=== PATIENT | female | born 1990 | race African-American/Black ===

== ENCOUNTER 2017-05-04 19:59 | Inpatient (IN) | payer OTHER ==
[~2017-05-04] VITALS: Ht 165.1 cm; Wt 86.5 kg
[2017-05-04] VITALS (14 sets, daily range): BP systolic 105–130; BP diastolic 55–81
[2017-05-04] MEDS ORDERED: PRENTAB9 PO (20:22)
[2017-05-04] MEDS ORDERED: LACTATED RINGER'S 1000 ML IV STA (21:37)
[2017-05-04] MEDS ORDERED: PENICILLIN G POTASSIUM IV 5 MU in D5W MINI-BAG PLUS 100 ML IV STA (21:37)
[2017-05-04] MEDS ORDERED: LR 1,000 ML IV SCH (21:37)
[2017-05-04 22:01] LABS: MEAN CORPUSCULAR HEMOGLOBIN 27.2 pg (27.0-33.0); MEAN CORPUSCULAR HGB CONC 33.6 g/dl (32.0-36.5); MEAN CORPUSCULAR VOLUME 80.8 fl (80.0-96.0); RED CELL DISTRIBUTION WIDTH 15.8 % (11.5-14.5)
--- NOTE | 2017-05-04 22:28 | HPEPDOC ---
Obstetrical History & Physical General Date of Admission May 04, 2017 at 21:36 History of Present Illness 26 y/o at 39+3 for reg ctx's most of the day. Pos FM. No VB/LOF. 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 History: No pertinent history Past Medical History Medical History denies Surgical History: [place] teeth Family History Significant Family History: No pertinent family hx Social History Marital Status: Family situation: Spouse/partner home Psychosocial History: No pertinent psych hx * Smoker: non-smoker Alcohol: Denies Drugs: denies Abuse Violence Screening Have you been hit/kicked/slapp: No Have you been sexually assault: No Imunizations Tdap status: current Influenza Status: current Allergies Coded Allergies: No Known Allergies (Unverified , 05/04/17) Medications Scheduled Multivitamins/ ( 27-0.8 mg) 1 Tab Tab, 1 TAB PO DAILY Physical Examination Physical Examination GENERAL: Alert and oriented times three. BREAST: . ABDOMEN: Gravid and non-tender to touch. FETUS: Is vertex (VTX) by sterile vaginal examination (SVE), Cx 5/80/-2 at 2130 HEART RATE: Regular rate and rhythm. LUNGS: Clear to auscultation (CTA). EXTREMITIES: No edema. No clonus. Vital Signs/I&O Vital Signs Date Time Temp Pulse Resp B/P (MAP) Pulse Ox O2 Delivery O2 Flow Rate FiO2 05/04/17 20:19 98.5 101 18 116/60 (78) Laboratory Data 24H LABS Laboratory Tests 2 05/04/17 21:38: Serology Scanned Report Hepatitis B Testing 05/04/17 21:52: Nucleated Red Blood Cells % (auto) 0.0 CBC/BMP Laboratory Tests 05/04/17 21:52 Red Blood Count 4.27, Mean Corpuscular Volume 80.8, Mean Corpuscular Hemoglobin 27.2, Mean Corpuscular Hemoglobin Concent 33.6, Red Cell Distribution Width 15.8 H Urine Culture: Other (gbs pos) Pertinent Laboratoy Data Blood Type: O+ RBC Antibody Screen: Negative HIV: Negative Hepatitis B: Negative Hepatitis C: Unknown Rapid Plasma Reagin: Nonreactive Rubella: Immune Varicella: Immune Chlamydia/Gonorrhea: Negative Group B Streptococcus: Positive Quad Screen Test: Declined Cystic Fibrosis: Negative Anatomy Ultrasound Placenta Location: Anterior Normal Anatomy: Yes Placenta Previa: No Assessment Variability: Moderate Accelerations: Positive Decelerations: None Tocometer Contractions: Yes Frequency: regular Duration: greater than 60 seconds Strength: palpated as moderate Assessment/Plan Plan Active labor. Admit and orient. 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 Diet: clr Group B Streptococcus (GBS) pos, will recheck at ~0200 after second dose PCN is in Labs and intravenous (IV) per unit protocol. Counseled on Pitocin prn Lactated Ringers (LR): Bolus 1000 cc prior to desired epidural Anticipate normal spontaneous delivery () C-S as appropriate. Sessions MD LIM,EVA Clark MD May 04, 2017 22:28
[2017-05-04] MEDS ORDERED: fentaNYL 100 MCG/2 ML INJECTION (J3010) As Ordered ONE (22:47)
[2017-05-04] MEDS ORDERED: FENTANYL 2MCG/ML ROPIVACAINE 0.2% IN 0.9% NACL 200ML IVBAG As Ordered ONE (22:49)
[2017-05-05] VITALS (37 sets, daily range): BP systolic 85–117; BP diastolic 50–75
[2017-05-05] MEDS ORDERED: ePHEDrine SULFATE 25 MG/5 ML(5MG/ML) SYRINGE As Ordered ONE ×2 (00:13→07:14)
[2017-05-05] MEDS: ePHEDrine SULFATE 25 MG/5 ML(5MG/ML) SYRINGE IV PRN ×3 (00:16→00:26)
[2017-05-05] MEDS ORDERED: EPIDURAL/PCA KEYS XX PRN (01:45)
[2017-05-05] MEDS ORDERED: FENTANYL/ROPIVACAINE/NACL BAG 200 ML EPIDURAL SCH (01:45)
[2017-05-05] MEDS ORDERED: REFRIGERATOR IV KEYS XX PRN (01:45)
[2017-05-05] MEDS ORDERED: NALOXONE INJ 0.4 MG/1 ML VIAL (J2310) IV PRN ×3 (01:45→06:24)
[2017-05-05] MEDS ORDERED: ONDANSETRON 4MG/2ML VIAL (J2405) IV PRN ×3 (01:45→08:15)
[2017-05-05] MEDS ORDERED: diphenhydrAMINE INJ 50MG/ML VIAL (J1200) IV PRN (01:45)
[2017-05-05] MEDS ORDERED: LACTATED RINGER'S 1000 ML IV PRN (01:45)
[2017-05-05] MEDS ORDERED: EPIDURAL COMMENT XX SCH (01:45)
[2017-05-05] MEDS ORDERED: PENICILLIN G POTASSIUM IV 2.5 MU in D5W 100 ML IV SCH (02:00)
[2017-05-05] MEDS ORDERED: OXYTOCIN 30 UNITS IN 0.9% NaCl 500ML IV BAG (J2590) As Ordered ONE ×2 (02:47→07:40)
--- NOTE | 2017-05-05 03:59 | IPNPDOC ---
Text Note Date of Service The patient was seen on 05/05/17. NOTE Now s/p 2nd dose PCN NST with lates after epidural which were BP related and ephedrine given X3, mod martin throughout. Now with intermittent variables and episodic lates noted. Cx 8/100/0, AROM with clr fluid, light mec noted Following tracing closely. Sessions VS,Eric, I+O VS, Eric, I+O Laboratory Tests 05/04/17 21:52 Red Blood Count 4.27, Mean Corpuscular Volume 80.8, Mean Corpuscular Hemoglobin 27.2, Mean Corpuscular Hemoglobin Concent 33.6, Red Cell Distribution Width 15.8 H Vital Signs Date Time Temp Pulse Resp B/P (MAP) Pulse Ox O2 Delivery O2 Flow Rate FiO2 05/04/17 20:19 98.5 101 18 116/60 (78) SESSIONS,EVA Clark MD May 05, 2017 03:59
[2017-05-05] MEDS ORDERED: ePHEDrine INJ 50 MG/ML VIAL IV STA (04:38)
--- NOTE | 2017-05-05 05:32 | IPNPDOC ---
Text Note Date of Service The patient was seen on 05/05/17. NOTE NST Cat 2 with episodic late decels, mod martin, now tachycardia as well Cx C/C/+1, will not labor down due to tracing issues, watching closely Sessions VS,Eric, I+O VSEric I+O Laboratory Tests 05/04/17 21:52 Red Blood Count 4.27, Mean Corpuscular Volume 80.8, Mean Corpuscular Hemoglobin 27.2, Mean Corpuscular Hemoglobin Concent 33.6, Red Cell Distribution Width 15.8 H Vital Signs Date Time Temp Pulse Resp B/P (MAP) Pulse Ox O2 Delivery O2 Flow Rate FiO2 05/05/17 03:47 98.3 129 16 99/61 (74) SESSIONS,EVA Clark MD May 05, 2017 05:32
[2017-05-05] MEDS ORDERED: MORPHINE PRES-FREE INJ 10 MG/10 ML VIAL (J2274) As Ordered ONE (06:07)
[2017-05-05] MEDS ORDERED: OXYTOCIN INJ 10 UNITS/ML VIAL (J2590) As Ordered ONE (06:09)
[2017-05-05] MEDS ORDERED: ceFAZolin 2 GM/D5W 50 ML IV BAG (J0690) As Ordered ONE (06:17)
[2017-05-05] MEDS ORDERED: NALBUPHINE HCL 10 MG/ML AMP (J2300) IV PRN ×2 (06:24→08:15)
[2017-05-05] MEDS ORDERED: METOCLOPRAMIDE INJ 10MG/2ML VIAL (J2765) IV PRN ×2 (06:24→08:15)
[2017-05-05] MEDS ORDERED: MIDAZOLAM INJ 2 MG/2 ML VIAL (J2250) As Ordered ONE ×2 (06:57→07:14)
[2017-05-05] MEDS ORDERED: PHENYLephrine HCL 500 MCG/5 ML (100MCG/ML) SYRINGE (J2370) As Ordered ONE ×2 (07:14→07:42)
[2017-05-05 07:33] LABS: CORD GAS ABE A -4.6; CORD GAS HCO3 A 24.2 MEQ/L; CORD GAS PCO2 A 60.3 mmHg; CORD GAS PH A 7.221 UNITS; CORD GAS PO2 A 20.6 mmHg; CORD GAS SBC A 19.4 MEQ/L
[2017-05-05 07:35] LABS: CORD GAS ABE V -6.4; CORD GAS O2 SAT V 47.1 %; CORD GAS PCO2 V 48.7 mmHg; CORD GAS PH V 7.253 UNITS; CORD GAS PO2 V 22.6 mmHg; CORD GAS SBC V 18.2 MEQ/L; CORD GAS TCO2 V 22.5 MEQ/L
[2017-05-05] MEDS ORDERED: METHYLERGONOVINE MALEATE 0.2 MG/ML VIAL (J2210) As Ordered ONE ×2 (08:02→08:03)
[2017-05-05] MEDS: LR 1,000 ML IV SCH ×2 (08:11→17:00)
[2017-05-05] MEDS ORDERED: OXYTOCIN DRIP 30 UNITS in APPROPRIATE DILUENT 1 EA IV SCH (08:11)
[2017-05-05] MEDS ORDERED: METHYLERGONOVINE MALEATE 0.2 MG TAB PO PRN (08:15)
[2017-05-05] MEDS ORDERED: MEPERIDINE INJ 25 MG/ML VIAL (J2175) IV PRN (08:15)
[2017-05-05] MEDS ORDERED: fentaNYL 100 MCG/2 ML INJECTION (J3010) IV PRN (08:15)
[2017-05-05] MEDS ORDERED: PERCOCET 5MG/325MG TAB PO PRN ×2 (08:15)
[2017-05-05] MEDS ORDERED: MEASLES,MUMPS,RUBELLA VACCINE INJ (MMR-II) (90707) SC SCH (08:15)
[2017-05-05] MEDS ORDERED: RHOGAM 300 MCG (1500 IU) INJ (J2790) IM SCH (08:15)
[2017-05-05] MEDS: PRENATAL VITAMINS CHEWABLE TABLET PO SCH (09:00)
[2017-05-05] MEDS: DOCUSATE SODIUM 100 MG CAP PO SCH ×2 (09:00→21:00)
[2017-05-05] MEDS: KETOROLAC 30 MG/ML VIAL (J1885) IV SCH ×3 (10:00→21:42)
--- NOTE | 2017-05-05 10:41 | RO ---
DATE OF PROCEDURE: 05/05/2017 PREPROCEDURE DIAGNOSES: Non-reassuring heart tracing, failed vacuum with no descent, meconium. POSTPROCEDURE DIAGNOSES: Non-reassuring heart tracing, failed vacuum with no descent, meconium, macrosomia. PROCEDURE: Stat primary delivery. SURGEON: Dr. Orlando Garcia. FILTER CLEANER: production maintenance technician ANESTHESIA: Spinal and assisted ventilation due to a high spinal. ESTIMATED BLOOD LOSS: 1000 mL. DRAINS: 100 mL of clear urine in the Garza catheter. FLUIDS REPLACED: 1800 of lactated Ringers. SPECIMEN: Placenta. PREOPERATIVE ANTIBIOTICS: Ancef 2 grams IV, all in prior to starting the case. FINDINGS: Pfannenstiel skin incision low transverse uterine incision, meconium, female, Apgars 8 and 8, 10 pounds 8 ounces, 4760 grams, lower uterine extension into the midline due to the macrosomia. INDICATION: The was a G1, P0 at term admitted for active labor who had intermittent late decelerations throughout most of her labor, however, moderate variability persisted and we were able to correct her decelerations with standard intrauterine resuscitation maneuvers. However, when she reached complete dilation and started to push, she had a late deceleration after every contraction that we were not able to fix. I consented her for operative vaginal delivery and delivery and when I placed the vacuum at the appropriate position, and the patient pushed for three sets of contractions, there was no descent whatsoever. The late decelerations continued therefore, she underwent an indicated urgent section. Dr. Lazaro the anesthesiologist thought it prudent to remove the epidural and place a spinal due to spotty coverage of the epidural and this was done without complication. However, shortly after the spinal was performed, the patient began to have shortness of breath and developed an obvious high spinal. Therefore, the case was transitioned from an urgent to an emergent stat . Dr. Lazaro was able to manage her airway and oxygen status with assisted ventilation only, never had to intubate her. Please see the anesthesia notations in the chart if there are questions. DESCRIPTION OF PROCEDURE: The patient was taken to the operating room in stable condition where spinal anesthetic was easily placed. While the patient's Garza was being placed, she developed a high spinal, therefore, the case transitioned from an urgent to an emergent . I scrubbed my hands and arms quickly while nurses did a Betadine prep of the abdomen and upper legs. She was then draped in normal sterile fashion and a Pfannenstiel skin incision was carried down to the layer of the fascia which was nicked in the midline and the fascia was extended bilaterally the extent of the skin incision. I the rectus muscles in the midline, breached the peritoneum bluntly with my digit and a stretching maneuver created an adequate peritoneal window. The bladder blade was placed. A bladder flap was not created due to the urgent nature of the situation and I was able to quickly perform a low transverse uterine incision and stretch it then to adequacy. Meconium noted. The infant's head was tightly wedged into the pelvis in the left occiput anterior (SOUTH) position and I immediately noted that the baby was much bigger than anyone had anticipated. My estimated weight prior to delivery was approximately 8 to 8-1/2 pounds. The heart was delivered through the uterine incision and with fundal pressure, we were able to deliver the rest of the without difficulty. The was vigorous, had good tone and a spontaneous cry and the cord was clamped times two and cut and the obviously macrosomic was handed off to the awaiting resuscitation team including the glove factory sewer, Dr. Plascencia. Dr. Plascencia had been present for some time due to being called also for the vacuum delivery. Cord gases were obtained at this point. It was noted to be arterial pH of 7.22 with a base excess of -4.6 and a venous gas with a pH of 7.25 with a base excess of -6.4. Cord blood was obtained. The placenta was delivered through the incision with traction and the uterus was massaged with Pitocin running wide open. The uterus was wrapped with a warm sponge and the uterine cavity was cleared of all clots and debris with two dry sponges. We noted that there was a deep midline extension of the uterine incision downward toward the cervix and bladder, which I closed first after grasping all edges with ring forceps. Closure suture was an 0 Vicryl. This was satisfactorily brought up to the level of the original uterine incision and I then closed the uterine incision from left to right with running locked suture of 0 Vicryl. I then imbricated the incision with 0 Monocryl without difficulty. Hemostasis was achieved with a few more [id number] suture. Irrigation was performed behind the uterus. Sterile milk was backfilled into the bladder and no defect was noted. The uterus was replaced into its anatomical position. The colic gutters were also irrigated and all clots debrided and removed. Hemostasis was noted at the uterine incision site for several minutes while I closed the peritoneal edges with a running #2-0 Vicryl. The rectus bellies were hemostatic. The fascial was closed with a running 0 Vicryl from left to right and the subcutaneous tissue was made to be hemostatic and copiously irrigated. I then closed this area with #3- 0 Vicryl and closed the skin with a running #4-0 Monocryl subcuticular stitch. Steri-Strips were placed. A pressure dressing was placed. The patient's legs were frogged and I did a bimanual sweep of the vaginal and cervix and massaged the uterus with a small amount of clot and debris noted. It was firm and at U- 1. Of note, at one point, while I was closing the midline extension, there was a significant amount bleeding and I asked for Methergine, which was given times one intramuscular (IM). All counts prior to, during and after the case were correct including sponge, needle and instruments. MTDD
[2017-05-06] MEDS: LR 1,000 ML IV SCH ×2 (00:11→08:11)
[2017-05-06 02:02] VITALS: BP 105/58
[2017-05-06] MEDS: KETOROLAC 30 MG/ML VIAL (J1885) IV SCH (04:10)
[2017-05-06 05:55] VITALS: BP 103/81
[2017-05-06 07:20] LABS: MEAN CORPUSCULAR HEMOGLOBIN 27.3 pg (27.0-33.0); MEAN CORPUSCULAR HGB CONC 32.8 g/dl (32.0-36.5); MEAN CORPUSCULAR VOLUME 83.5 fl (80.0-96.0); RED CELL DISTRIBUTION WIDTH 15.9 % (11.5-14.5); WHITE BLOOD COUNT 14.4 10^3/uL (4.0-10.0)
--- NOTE | 2017-05-06 08:08 | IPNPDOC ---
Text Note Date of Service The patient was seen on 05/06/17. NOTE POD1 prog note States feeling well, no complaints. No heavy VB. Pain controlled. Bottle feeding. Garza now out and has voided X1. VSSAF CTAB RRR Ut at U-2, firm Ext no [employer] with bandage intact no strikethru, removed. CDI. UO adeq since This AM HCT 23.2, PLT 230 a/p: Doing well. Routine Postop care. Likely d/c tomorrow. Sessions Eric PAYAN, I+O Eric MCLEAN I+O Laboratory Tests 05/06/17 07:10 Red Blood Count 2.78 L, Mean Corpuscular Volume 83.5, Mean Corpuscular Hemoglobin 27.3, Mean Corpuscular Hemoglobin Concent 32.8, Red Cell Distribution Width 15.9 H Vital Signs Date Time Temp Pulse Resp B/P (MAP) Pulse Ox O2 Delivery O2 Flow Rate FiO2 05/06/17 05:55 98.7 98 18 103/81 (88) 98 Room Air SESSIONS,EVA Clark MD May 06, 2017 08:08
[2017-05-06] MEDS: DOCUSATE SODIUM 100 MG CAP PO SCH (08:12)
[2017-05-06] MEDS: PRENATAL VITAMINS CHEWABLE TABLET PO SCH (08:12)
[2017-05-06 10:13] VITALS: BP 115/62
[2017-05-06] MEDS ORDERED: IBUPROFEN 800 MG TAB PO SCH (12:00)
[2017-05-06 14:12] VITALS: BP 107/56
[2017-05-06] MEDS: IBUPROFEN 100 MG/5 ML SUSP UDC DYE FREE PO PRN (14:25)
[2017-05-06 18:06] VITALS: BP 109/55
[2017-05-06] MEDS: DOCUSATE SOD LIQ 100MG/10ML UDC PO SCH (21:00)
[2017-05-06] MEDS: HYDROcodone/APAP LIQUID 7.5-325MG 15ML UDC (LORTAB ELIXIR) PO PRN (21:32)
[2017-05-06 22:00] VITALS: BP 111/60
[2017-05-07 02:00] VITALS: BP 109/61
[2017-05-07] MEDS: HYDROcodone/APAP LIQUID 7.5-325MG 15ML UDC (LORTAB ELIXIR) PO PRN (04:30)
[2017-05-07 06:00] VITALS: BP 110/56
[2017-05-07 09:50] VITALS: BP 109/61
[2017-05-07] MEDS: DOCUSATE SOD LIQ 100MG/10ML UDC PO SCH (10:46)
[2017-05-07] MEDS: PRENATAL VITAMINS CHEWABLE TABLET PO SCH (10:47)
[2017-05-07] MEDS: IBUPROFEN 100 MG/5 ML SUSP UDC DYE FREE PO PRN (10:48)
--- NOTE | 2017-05-07 13:12 | DS.PDOC ---
Discharge Summary General Date of Admission May 04, 2017 at 21:36 Date of Discharge [id number] Discharge Summary PROCEDURES PERFORMED DURING STAY: Primary Delivery ADMITTING DIAGNOSIS: 1. Active Labor DISCHARGE DIAGNOSES: 1. Healthy infant 2. Macrosomia 3. HOSPITAL COURSE: Admitted for labor. Progressed to complete dilation . Developed a nonreassuring heart tracing while pushing and after placement of a vacuum had no descent. An unexpectedly macrosomic baby was born via . Uncomplicated, see operative note. DISCHARGE MEDICATIONS: Motrin, Percocet, Colace, Orthoevra in 1 month Physical exam: see note from today. LABORATORY DATA: Please see below. ACTIVITY: as tolerated. Nothing in vagina for 6 weeks. No bathing for 4 weeks. No driving for 2 weeks. DIET: regular DISPOSITION:stable TIME SPENT ON DISCHARGE: Greater than 15 minutes. Sessions Vital Signs/I&Os Vital Signs Date Time Temp Pulse Resp B/P (MAP) Pulse Ox O2 Delivery O2 Flow Rate FiO2 05/07/17 09:50 97.7 97 18 109/61 (77) 05/07/17 06:00 100 Room Air 05/06/17 18:06 99.0 Discharge Medications Scheduled Multivitamins/ ( 27-0.8 mg) 1 Tab Tab, 1 TAB PO DAILY, (Reported ) Allergies Coded Allergies: No Known Allergies (Unverified , 05/04/17) SESSIONSEVA MD May 07, 2017 13:12
--- NOTE | 2017-05-07 13:14 | IPNPDOC ---
Text Note Date of Service The patient was seen on 05/07/17. NOTE POD2 prog note States feeling well, no complaints. No heavy VB. Pain controlled. Bottle feeding. Voiding. Ambulatory. No N/V. VSSAF CTAB RRR Ut at U-2, firm Ext no CCE Inc CDI a/p: Doing well. Routine Postop care. D/C now. Sessions VS,Eric, I+O VSEric, I+O Vital Signs Date Time Temp Pulse Resp B/P (MAP) Pulse Ox O2 Delivery O2 Flow Rate FiO2 05/07/17 09:50 97.7 97 18 109/61 (77) 05/07/17 06:00 100 Room Air 05/06/17 18:06 99.0 SESSIONS,EVA Clark MD May 07, 2017 13:14
[2017-05-07] MEDS ORDERED: DOCU60SY2 PO (13:31)
[2017-05-07] MEDS ORDERED: IBUP100S2 PO (13:32)
[2017-05-07] MEDS ORDERED: HYDR1SOL PO (13:39)
== END 2017-05-07 14:40 | disposition home or self-care (01) | DRG 766 ==
LOC: M LDO 19:59 → M LDI 21:36 → M OBS 05-05 09:34
PROVIDERS: ADMIT Obstetrics & Gynecology; ATTEND Obstetrics & Gynecology
PROC: 10907ZC Drainage of Amniotic Fluid, Therapeutic from Products of Conception, Via Natural or Artificial Opening (ICD-10-PCS; 2017-05-05)
PROC: 10D00Z1 Extraction of Products of Conception, Low, Open Approach (ICD-10-PCS; principal; 2017-05-05 06:17)
DX: O36.63X0 Maternal care for excessive fetal growth, third trimester, not applicable or unspecified (principal); Z37.0 Single live birth; Z3A.39 39 weeks gestation of pregnancy; Z79.899 Other long term (current) drug therapy; O99.824 Streptococcus B carrier state complicating childbirth; O32.4XX0 Maternal care for high head at term, not applicable or unspecified; O66.5 Attempted application of vacuum extractor and forceps; O76 Abnormality in fetal heart rate and rhythm complicating labor and delivery; O77.0 Labor and delivery complicated by meconium in amniotic fluid; O00-O9A Pregnancy, childbirth and the puerperium; R06.02 Shortness of breath

== ENCOUNTER 2017-05-14 01:14 | Emergency (ER) | payer OTHER ==
[~2017-05-14 01:14] MED LIST: DOCU60SY2 PO; HYDR1SOL PO; IBUP100S2 PO; PRENTAB9 PO
[2017-05-14 01:28] VITALS: BP 123/72
[2017-05-14] MEDS ORDERED: AMOX500C PO (06:50)
== END 2017-05-14 07:01 | disposition home or self-care (01) ==
LOC: M ED 01:14
DX: J02.0 Streptococcal pharyngitis (principal)

== ENCOUNTER 2017-12-02 08:16 | Emergency (ER) | payer OTHER ==
[2017-12-02] MEDS: ONDANSETRON 4MG/2ML VIAL (J2405) IV (08:58)
[2017-12-02] MEDS: KETOROLAC 30 MG/ML VIAL (J1885) IV (08:59)
[2017-12-02 09:14] LABS: BASO % 0.5 % (0.0-1.0); EOS # 0.2 10^3/uL (0.0-0.50); EOS % 1.9 % (0.0-3.0); HEMATOCRIT 41.1 % (36.0-47.0); HEMOGLOBIN 13.1 g/dl (12.0-15.5); IMMATURE GRANULOCYTE % 0.5 % (0-3.0); LYMPH # 1.4 10^3/uL (1.5-6.5); LYMPH % 17.6 % (24.0-44.0); MEAN CORPUSCULAR HEMOGLOBIN 25.9 pg (27.0-33.0); MEAN CORPUSCULAR HGB CONC 31.9 g/dl (32.0-36.5); MEAN CORPUSCULAR VOLUME 81.4 fl (80.0-96.0); MONO # 0.4 10^3/uL (0.0-0.8); MONO % 4.5 % (0.0-5.0); PLATELET COUNT, AUTOMATED 315 10^3/uL (150-450); RED BLOOD COUNT 5.05 10^6/uL (4.00-5.40); RED CELL DISTRIBUTION WIDTH 15.3 % (11.5-14.5)
[2017-12-02 09:36] LABS: KETONE, URINE AUTO RFX NEGATIVE (NEGATIVE); LEUKOCYTE ESTERASE UR AUTO RFX NEGATIVE (NEGATIVE); MUCUS, URINE RFX SMALL (NEGATIVE); NITRITE, URINE AUTO RFX NEGATIVE (NEGATIVE); RBC, URINE AUTO RFX 2 /HPF (0-3); SQUAM EPITHELIAL CELL UR AURFX 0 /HPF (0-6); WBC, URINE AUTO RFX 1 /HPF (0-3)
[2017-12-02 09:46] LABS: ANION GAP 6 MEQ/L (8-16); BLOOD UREA NITROGEN 12 MG/DL (7-18); C REACTIVE PROTEIN QUANTITATIV < 0.30 MG/DL (0.00-0.30); CALCIUM LEVEL 9.4 MG/DL (8.5-10.1); CARBON DIOXIDE LEVEL 26 MEQ/L (21-32); CHLORIDE LEVEL 106 MEQ/L (98-107); CREATININE FOR GFR 0.84 MG/DL (0.55-1.30); GLOMERULAR FILTRATION RATE > 60.0 (>60); GLUCOSE, FASTING 90 MG/DL (70-100); POTASSIUM SERUM 4.4 MEQ/L (3.5-5.1); SODIUM LEVEL 138 MEQ/L (136-145)
== END 2017-12-02 10:10 | disposition home or self-care (01) ==
LOC: M ED 08:16
DX: R10.9 Unspecified abdominal pain (principal); R11.2 Nausea with vomiting, unspecified; Z98.890 Other specified postprocedural states
CPT/HCPCS: J2405

== ENCOUNTER 2017-12-14 00:34 | Emergency (ER) | payer OTHER ==
[2017-12-14 01:20] LABS: BASO % 0.5 % (0.0-1.0); EOS # 0.3 10^3/uL (0.0-0.50); EOS % 3.9 % (0.0-3.0); HEMOGLOBIN 12.2 g/dl (12.0-15.5); IMMATURE GRANULOCYTE % 0.3 % (0-3.0); LYMPH # 2.3 10^3/uL (1.5-6.5); LYMPH % 36.1 % (24.0-44.0); MEAN CORPUSCULAR HEMOGLOBIN 26.2 pg (27.0-33.0); MEAN CORPUSCULAR HGB CONC 32.1 g/dl (32.0-36.5); MEAN CORPUSCULAR VOLUME 81.5 fl (80.0-96.0); MONO # 0.5 10^3/uL (0.0-0.8); NEUTROPHILS # 3.4 10^3/uL (1.8-7.7); NEUTROPHILS % 52.2 % (36.0-66.0); PLATELET COUNT, AUTOMATED 294 10^3/uL (150-450); RED BLOOD COUNT 4.66 10^6/uL (4.00-5.40); RED CELL DISTRIBUTION WIDTH 15.1 % (11.5-14.5); WHITE BLOOD COUNT 6.5 10^3/uL (4.0-10.0)
[2017-12-14] MEDS: LORazepam 2 MG/ML VIAL (J2060) IV (01:20)
[2017-12-14 01:46] LABS: ANION GAP 6 MEQ/L (8-16); BLOOD UREA NITROGEN 12 MG/DL (7-18); C REACTIVE PROTEIN QUANTITATIV < 0.30 MG/DL (0.00-0.30); CALCIUM LEVEL 9.2 MG/DL (8.5-10.1); CARBON DIOXIDE LEVEL 28 MEQ/L (21-32); CHLORIDE LEVEL 106 MEQ/L (98-107); CREATININE FOR GFR 0.81 MG/DL (0.55-1.30); GLOMERULAR FILTRATION RATE > 60.0 (>60); GLUCOSE, FASTING 105 MG/DL (70-100); POTASSIUM SERUM 3.8 MEQ/L (3.5-5.1); SODIUM LEVEL 140 MEQ/L (136-145)
[2017-12-14 01:48] LABS: CONTROL LINE HCG INT CTR LINE PRESENT; HCG, SERUM QUALITATIVE NEGATIVE (NEGATIVE)
== END 2017-12-14 02:46 | disposition home or self-care (01) ==
LOC: M ED 00:34
DX: F41.0 Panic disorder [episodic paroxysmal anxiety] (principal)
CPT/HCPCS: J2060

== ENCOUNTER 2018-03-06 00:31 | Emergency (ER) | payer OTHER ==
[2018-03-06] MEDS: LORazepam 2 MG/ML VIAL (J2060) IV (01:26)
== END 2018-03-06 04:46 | disposition home or self-care (01) ==
LOC: M ED 00:31
DX: F41.0 Panic disorder [episodic paroxysmal anxiety] (principal)
CPT/HCPCS: J2060

== ENCOUNTER 2018-03-07 22:53 | Emergency (ER) | payer OTHER ==
[2018-03-08] MEDS: LORazepam 2 MG/ML VIAL (J2060) IM (00:32)
== END 2018-03-08 01:40 | disposition home or self-care (01) ==
LOC: M ED 22:53
DX: F41.0 Panic disorder [episodic paroxysmal anxiety] (principal)
CPT/HCPCS: J2060

== ENCOUNTER 2018-03-09 20:36 | Emergency (ER) | payer OTHER ==
[2018-03-09] MEDS: NS 1,000 ML IV (23:03)
[2018-03-09] MEDS: dexameTHASONE 20 MG/5 ML VIAL (J1100) IV (23:03)
[2018-03-09 23:15] LABS: BASO # 0.1 10^3/uL (0.0-0.2); BASO % 0.8 % (0.0-1.0); EOS # 0.2 10^3/uL (0.0-0.50); EOS % 2.5 % (0.0-3.0); HEMATOCRIT 43.4 % (36.0-47.0); HEMOGLOBIN 14.2 g/dl (12.0-15.5); IMMATURE GRANULOCYTE % 0.2 % (0-3.0); LYMPH # 2.3 10^3/uL (1.5-6.5); LYMPH % 35.7 % (24.0-44.0); MEAN CORPUSCULAR HEMOGLOBIN 26.7 pg (27.0-33.0); MEAN CORPUSCULAR HGB CONC 32.7 g/dl (32.0-36.5); MEAN CORPUSCULAR VOLUME 81.6 fl (80.0-96.0); MONO # 0.5 10^3/uL (0.0-0.8); NEUTROPHILS # 3.5 10^3/uL (1.8-7.7); NEUTROPHILS % 52.8 % (36.0-66.0); PLATELET COUNT, AUTOMATED 290 10^3/uL (150-450); RED BLOOD COUNT 5.32 10^6/uL (4.00-5.40); RED CELL DISTRIBUTION WIDTH 13.3 % (11.5-14.5); WHITE BLOOD COUNT 6.5 10^3/uL (4.0-10.0)
[2018-03-09 23:42] LABS: ALBUMIN 4.2 GM/DL (3.2-5.2); ALBUMIN/GLOBULIN RATIO 1.05 (1.00-1.93); ALKALINE PHOSPHATASE 42 U/L (45-117); ALT/SGPT 22 U/L (12-78); ANION GAP 9 MEQ/L (8-16); AST/SGOT 19 U/L (7-37); BILIRUBIN,TOTAL 0.6 MG/DL (0.2-1.0); BLOOD UREA NITROGEN 11 MG/DL (7-18); C REACTIVE PROTEIN QUANTITATIV < 0.30 MG/DL (0.00-0.30); CALCIUM LEVEL 9.6 MG/DL (8.5-10.1); CARBON DIOXIDE LEVEL 26 MEQ/L (21-32); CHLORIDE LEVEL 106 MEQ/L (98-107); CREATININE FOR GFR 0.89 MG/DL (0.55-1.30); GLOMERULAR FILTRATION RATE > 60.0 (>60); GLUCOSE, FASTING 92 MG/DL (70-100); POTASSIUM SERUM 3.8 MEQ/L (3.5-5.1); SODIUM LEVEL 141 MEQ/L (136-145); T UPTAKE 35 % (30-39); THYROXINE (T4) 14.3 UG/DL (4.5-12.0); TOTAL PROTEIN 8.2 GM/DL (6.4-8.2)
[2018-03-09] MEDS ORDERED: ISOVUE-370 76% 100ML VIAL (Q9967) As Ordered (23:55)
== END 2018-03-10 01:28 | disposition home or self-care (01) ==
LOC: M ED 03-10 01:28
DX: J02.9 Acute pharyngitis, unspecified (principal)
CPT/HCPCS: J1100

== ENCOUNTER → 2018-03-09 | Outpatient (REF) | payer OTHER | LOC: M SFHCLERA 19:50 | DX: J02.9 Acute pharyngitis, unspecified (principal) ==

== ENCOUNTER 2018-03-10 20:18 | Emergency (ER) | payer OTHER | END 2018-03-10 21:43 | disposition home or self-care (01) | LOC: M ED 20:18 | DX: R13.10 Dysphagia, unspecified (principal) | CPT/HCPCS: 99282 ==

== ENCOUNTER 2018-03-11 21:34 | Emergency (ER) | payer OTHER ==
[2018-03-12] MEDS: PANTOPRAZOLE 40MG INJ (PROTONIX) (C9113) IV
[2018-03-12] MEDS: NS 1,000 ML IV
[2018-03-12] MEDS ORDERED: ISOVUE-370 76% 100ML VIAL (Q9967) As Ordered (00:02)
[2018-03-12 00:16] LABS: BASO % 0.4 % (0.0-1.0); EOS # 0.2 10^3/uL (0.0-0.50); EOS % 2.8 % (0.0-3.0); HEMATOCRIT 40.1 % (36.0-47.0); HEMOGLOBIN 13.4 g/dl (12.0-15.5); IMMATURE GRANULOCYTE % 0.1 % (0-3.0); LYMPH # 2.4 10^3/uL (1.5-6.5); LYMPH % 34.7 % (24.0-44.0); MEAN CORPUSCULAR HEMOGLOBIN 26.8 pg (27.0-33.0); MEAN CORPUSCULAR HGB CONC 33.4 g/dl (32.0-36.5); MEAN CORPUSCULAR VOLUME 80.2 fl (80.0-96.0); MONO # 0.5 10^3/uL (0.0-0.8); MONO % 7.5 % (0.0-5.0); NEUTROPHILS # 3.7 10^3/uL (1.8-7.7); NEUTROPHILS % 54.5 % (36.0-66.0); PLATELET COUNT, AUTOMATED 295 10^3/uL (150-450); RED CELL DISTRIBUTION WIDTH 13.4 % (11.5-14.5); WHITE BLOOD COUNT 6.8 10^3/uL (4.0-10.0)
[2018-03-12 00:44] LABS: ALBUMIN 4.1 GM/DL (3.2-5.2); ALBUMIN/GLOBULIN RATIO 1.11 (1.00-1.93); ALKALINE PHOSPHATASE 39 U/L (45-117); ALT/SGPT 19 U/L (12-78); ANION GAP 12 MEQ/L (8-16); AST/SGOT 16 U/L (7-37); BILIRUBIN,DIRECT 0.2 MG/DL (0.0-0.2); BILIRUBIN,TOTAL 0.6 MG/DL (0.2-1.0); BLOOD UREA NITROGEN 16 MG/DL (7-18); CALCIUM LEVEL 9.3 MG/DL (8.5-10.1); CARBON DIOXIDE LEVEL 24 MEQ/L (21-32); CHLORIDE LEVEL 107 MEQ/L (98-107); CREATININE FOR GFR 0.85 MG/DL (0.55-1.30); GLOMERULAR FILTRATION RATE > 60.0 (>60); GLUCOSE, FASTING 74 MG/DL (70-100); LIPASE 83 U/L (73-393); POTASSIUM SERUM 3.7 MEQ/L (3.5-5.1); SODIUM LEVEL 143 MEQ/L (136-145); TOTAL PROTEIN 7.8 GM/DL (6.4-8.2)
== END 2018-03-12 01:55 | disposition home or self-care (01) ==
LOC: M ED 03-12 01:55
DX: R10.13 Epigastric pain (principal)
CPT/HCPCS: C9113

== ENCOUNTER → 2018-03-13 | Outpatient (CLI) | payer OTHER ==
[~2018-03-13] MED LIST changes: -DOCU60SY2 PO; +E-Z-GAS II EFFERVESCENT PACKET (SODIUM BICARB./CITRIC ACID/SIMETHICONE) As Ordered; +E-Z-HD 98% w/w 340GM SUSP BTL As Ordered; +E-Z-PAQUE 96% w/w SUSP 176GM BTL As Ordered; +GASTROGRAFIN SOLUTION 30ML (Q9963) As Ordered; -HYDR1SOL PO; -IBUP100S2 PO; -PRENTAB9 PO
== END ==
LOC: M RAD 09:45
DX: R13.10 Dysphagia, unspecified (principal)

== ENCOUNTER 2018-03-17 12:56 | Day surgery (SDC) | payer OTHER ==
[2018-03-17] MEDS: NS 1,000 ML IV (06:00)
[2018-03-17] MEDS ORDERED: PROPOFOL 200 MG/20 ML VIAL As Ordered ×2 (14:45→14:53)
[2018-03-17] MEDS ORDERED: LIDOCAINE 2% INJ 100 MG/5 ML SYRINGE As Ordered (14:45)
[2018-03-17] MEDS ORDERED: fentaNYL 100 MCG/2 ML INJECTION (J3010) As Ordered (14:46)
== END 2018-03-17 15:42 | disposition home or self-care (01) ==
LOC: M SDC 12:56
DX: R13.10 Dysphagia, unspecified (principal); K29.70 Gastritis, unspecified, without bleeding; K21.9 Gastro-esophageal reflux disease without esophagitis; D64.9 Anemia, unspecified
CPT/HCPCS: 43239

== ENCOUNTER → 2018-04-21 | Outpatient (CLI) | payer OTHER | LOC: M RAD 08:52 | DX: R93.3 Abnormal findings on diagnostic imaging of other parts of digestive tract (principal) ==